=== PATIENT | female | born 1945 | race Caucasian/White ===

== ENCOUNTER → 2023-11-04 08:57 | Outpatient (REF) | payer MEDICARE, SELFPAY ==
[2023-11-04 09:56] LABS: % Basophils 0.7 % (0-2); % Eosinophils 2.5 % (0-6); % Lymphocytes 31.8 % (20.5-51.1); % Monocytes 8.7 % (1.7-9.3); % Neutrophils 56.3 % (42.2-75.2); Absolute Eosinophils 0.1 10^3/uL (0-0.7); Absolute Lymphocytes 1.4 10^3/uL (1.2-3.4); Absolute Monocytes 0.4 10^3/uL (0.1-0.6); Absolute Neutrophils 2.5 10^3/uL (1.4-6.5); Hematocrit 43.3 % (37.0-47.0); Hemoglobin 14.9 g/dL (12.0-16.0); Mean Corp Hgb Conc. 34.4 g/dL (33.0-37.0); Mean Corpuscular Hgb 32.4 pg (27.0-31.0); Mean Corpuscular Volume 94.1 fL (81.0-99.0); Mean Platelet Volume 9.9 fL (7.4-10.4); Nucleated Red Blood Cells % 0 %; Platelet Count 222 10^3/uL (130-400); Red Cell Dist. Width 12.1 % (11.5-14.5); White Blood Cell Count 4.5 10^3/uL (4.8-10.8)
[2023-11-04 10:52] LABS: ALT (SGPT) 15 U/L (0-35); AST (SGOT) 29 U/L (14-36); Albumin 4.5 g/dl (3.5-5.0); Alkaline Phosphatase 55 U/L (38-126); Blood Urea Nitrogen 18 mg/dl (7-17); Calcium 10.2 mg/dl (8.4-10.2); Carbon Dioxide 27 mmol/L (22-30); Chloride 101 mmol/L (98-107); Glucose 95 mg/dl (70-99); Potassium 4.6 mmol/L (3.5-5.1); Sodium 137 mmol/L (135-145); Total Bilirubin 0.7 mg/dl (0.2-1.3); Total Protein 6.5 g/dl (6.3-8.2); eGFR > 60.00
== END ==
LOC: SDSPAT 08:57
PROVIDERS: ATTENDING PHYSICIAN Internal Medicine Cardiovascular Disease; FAMILY PHYSICIAN Nurse Practitioner Adult Health
DX: Z01.818 Encounter for other preprocedural examination (principal); I48.0 Paroxysmal atrial fibrillation
CPT/HCPCS: 36415; 80053; 85025; 86850; 86900; 86901

== ENCOUNTER → 2023-11-04 09:24 | Outpatient (REF) | payer MEDICARE, SELFPAY | LOC: RAD 09:24 | PROVIDERS: ATTENDING PHYSICIAN Nurse Practitioner Adult Health | DX: M85.80 Other specified disorders of bone density and structure, unspecified site (principal); Z12.13 Encounter for screening for malignant neoplasm of small intestine; M81.0 Age-related osteoporosis without current pathological fracture | CPT/HCPCS: 77080 ==

== ENCOUNTER 2023-11-12 05:59 | Day surgery (SDC) | payer MEDICARE, SELFPAY ==
[2023-11-12] VITALS (15 sets, daily range): BP systolic 94–143; BP diastolic 45–62; BMI 29.1
[2023-11-12] MEDS: NSS 500 IV (06:41)
[2023-11-12 08:42] LABS: Blood Urea Nitrogen 15 mg/dl (7-17); Calcium 9.3 mg/dl (8.4-10.2); Carbon Dioxide 24 mmol/L (22-30); Chloride 108 mmol/L (98-107); Estimated Creatinine Clearance 72 ml/min; Glucose 91 mg/dl (70-99); Magnesium 2.1 mg/dl (1.6-2.3); Sodium 140 mmol/L (135-145); eGFR > 60.00
[2023-11-12 09:53] LABS: ACT-LR - POC 393 Seconds (116-155)
[2023-11-12 10:00] LABS: ACT-LR - POC > 397 Seconds (116-155)
[2023-11-12 10:00] LABS: ACT-LR - POC > 397 Seconds (116-155)
[2023-11-12] MEDS: TYLENOL 650 MG PO (11:13)
[2023-11-12] MEDS: ANESTHETIC LOZENGE 1 LOZENGE PO (12:48)
--- NOTE | 2023-11-12 12:52 | ITS.CL.ABL ---
[facility] - Ablation
Ablation
Procedure Report:
AFIB ablation:
Ms. Velazco is a very pleasant 77 yr old woman with symptomatic paroxysmal AF on Eliquis presented today to the EP lab for atrial fibrillation / SVT ablation.
Date of the Procedure:
11/12/2023
Indications:
Paroxysmal atrial fibrillation
Pre-Operative Diagnosis:
Paroxysmal atrial fibrillation
Post-Operative Diagnosis:
Paroxysmal atrial fibrillation
Procedure Performed:
Atrial fibrillation ablation with Pulsed-Field approach for pulmonary vein isolation
Performing Physician:
Trino Robles MD
Assistants:
EP staff
Anesthesia:
See anesthesia records
Detailed Description of the Procedure:
Written informed consent was obtained from the patient after a full explanation of the risks and benefits of the procedure including the risks of sedation and anesthesia.
The patient was brought to the electrophysiology laboratory in stable condition in fasting state. Continuous electrocardiographic and hemodynamic monitoring was initiated.
The initial rhythm was normal sinus rhythm.
The procedure site was meticulously prepared with surgical scrub and allowed to dry with no pooling. Sterile draping was applied to cover the procedure site. The image intensifier was draped with sterile bag and positioned over the patient. After
infusion of local anesthetic, vascular access was obtained under ultrasound guidance and sheaths were placed over guide wire as detailed below.
Sheath and Catheter Placement:
The following catheters / sheaths were placed. 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
Sheaths:
��������� 15Fr steerable sheath (FlexCath Cross�, Onzo) in right femoral vein in right femoral vein
��������� 9Fr in right femoral vein
��������� 7Fr in right femoral vein
Catheters:
��������� ISIAH HD Grid mapping catheter � at locations of RA, LA
��������� PulseSelect� PFA catheter
��������� ICE catheter -AcuNav - at locations of RA, SVC, and RV.
��������� Decapolar Bard catheter in RA and CS
Intracardiac ECHO:
An 8-Romanian AcuNav intracardiac ECHO (ICE) probe was advanced through the 9-Romanian sheath in the right femoral vein into the right atrium under fluoroscopic and ICE ultrasound image guidance and a baseline ECHO study was performed. The left atrial
size was mildly dilated. There was moderate tricuspid regurgitation. The aortic valve was grossly normal. There was normal left ventricular systolic functions. There is trace pericardial effusion. All the four veins were identified and has flow
identified.
The cardiac chambers were significantly rotated.
During the procedure, ICE was used for monitoring of complications, guidance of trans-septal puncture, monitor the catheter position and tracking ablation lesions. No change in the pericardial space noted throughout the procedure.
Trans-septal Puncture:
Heparin was initiated and infused to maintain appropriate ACT. A J-tipped guidewire was advanced through the 8-Romanian sheath in the right femoral vein into the superior vena cava under fluoroscopic and ICE guidance. The 8-Romanian sheath was exchanged
for a FlexCath Cross sheath which was advanced into the superior vena cava. An [employer] transseptal access system was utilized to perform the trans-septal puncture. The apparatus was withdrawn until it was in contact with the fossa ovalis. The
position was adjusted based on fluoroscopy and ultrasound images from ICE. Under fluoroscopic, hemodynamic and ICE ultrasound guidance, left atrium was cannulated by advancing the needle. Once atrial septum was cannulated, the needle was pulled back
and a guide wire was advanced through the needle into the left atrium. The guide wire was advanced into the left superior pulmonary vein. Both the sheath and the dilator was advanced into the left atrium. The dilator with the needle was withdrawn.
Blood was aspirated from the FlexCath cross sheath and arterial blood confirmed. The sheath was flushed. Saline injection noted into the left atrium on ICE. The mapping catheter was advanced in the Agilis sheath into the left pulmonary vein. Left
atrial pressure was measured.
3D Electroanatomic Mapping:
Using the HD Grid catheter advanced through sheath into the left atrium, an electroanatomic map (EAM) of the left atrium was created using [employer] ISIAH mapping system. The map was used for localization of catheter position and tacking of ablation
lesions. The EAM of the left atrium showed 4 pulmonary veins with two left sided and two right sided veins electrically connected to the body the LA. The EAM showed no significant scar in the left atrium.
Patient had severe ectopy and frequent short burst of AT noted, coming from the LA.
The LA was normal in size.
Following the EAM, preparation were made for ablation.
�
Ablation:
Ablation # 1: Pulmonary vein Isolation:
Using Comply7� pulsed field ablation system, pulmonary vein isolation was acieved. First the ablation catheter was placed in the LIPV and ostial ablation lesions were performed in a counter clock chris approach all around the PV ostium
circumferentially. Then the catheter was placed on the antral location and multiple ablation lesions were placed circumferentially on the antrum of the vein.
In the similar fashion, the LSPV were isolated.
Then the catheter was moved to right sided veins. The ostial and antral ablations were placed as noted above.
After 30 minutes, the left sided (LSPV) was noted to have signals anteriorly and was able to capture the atrial tissue by pacing. This prompted more ablation in the LSPV.
�
Post ablation Electroanatomic mapping:
Once the sinus rhythm achieved, the LA was mapped with HD grid in detail.
The veins were isolated and normal electrograms noted in the posterior wall. Excellent WACA ablation noted with excellent demarcation of LA myocardium and isolated antral tissue. There was dissociated signals were noted in the veins as well.
EPS and Confirmation of the PVI and bidirectional block:
Following achievement of entrance block at the pulmonary veins, pacing from the HD catheter in each of the four veins at 10 milliamps for 2 milliseconds showed entrance and exit block. All PVI were rechecked at the end of the case and remained
isolated with dissociated and local capture with pacing. Entrance and exit block were demonstrated in all veins.
Full EPS was done and burst pacing and aggressive pacing maneuvers were done without any arrhythmia noted. The AT was not present post ablation.
Procedure End
ICE study was done again that showed no epicardial accumulation. No complications noted.
Following the completion of the EP study, catheters were removed. Protamine 30 mg was given at the end of the procedure and ACT was checked repeatedly. The sheaths were removed and hemostasis achieved with VASCADE and manual compression after
acceptable ACT is achieved.
Left atrial Pressure:
Mean LA pressure was 5mmHg
Mean RA pressure was 2 mmHg
Estimated Blood loss:
<10 cc
Specimens Removed:
None.
Implants / Devices:
None
Urine output:
None
Packs / Drains/ Tubes:
None
Instrument / Sponge Count Correct:
Yes
Complications of the Procedure:
None
Condition of Patient at Time of Transfer:
Hemodynamically stable with no neurological or vascular compromise.
Summary:
Successful atrial fibrillation ablation with Pulsed Field approach for pulmonary vein isolation
Figures from the Procedure:
Figure 1: The electroanatomic mapping (EAM) of the left atrium with bipolar voltage (purple indicates normal electrical activity with orona as no myocardial muscle electric activity indicating a line of block or scar.
[2023-11-12] MEDS: NSS IV (13:38)
[2023-11-12] MEDS: NSS 250 IV (13:39)
--- NOTE | 2023-11-12 14:19 | W.PN.UPDATE ---
Update Note
Progress Note Update
77 yo WF s/p PVI (same day). She had some mild low bp and dizziness, improved with 500cc NS bolus, no cp, sob, voiding, groin c/d/i no HT, soft, EKG SB. She will continue OAC Eliquis at home tonight. Activity restrictions reviewed. 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
in 2 weeks. She is for d/c home after 2pm if groin stable
Ms. Velazco is a very pleasant 77 yr old woman with symptomatic paroxysmal AF on Eliquis presented today to the EP lab for atrial fibrillation / SVT ablation.
11/12/2023
Procedure Performed:
Atrial fibrillation ablation with Pulsed-Field approach for pulmonary vein isolation
== END 2023-11-12 14:50 | disposition home or self-care (01) ==
LOC: CATH 05:59
PROVIDERS: ATTENDING PHYSICIAN Internal Medicine Cardiovascular Disease
DX: I48.0 Paroxysmal atrial fibrillation (principal); R53.83 Other fatigue; I10 Essential (primary) hypertension; E78.5 Hyperlipidemia, unspecified; E03.9 Hypothyroidism, unspecified; Z80.8 Family history of malignant neoplasm of other organs or systems; Z79.01 Long term (current) use of anticoagulants
CPT/HCPCS: C1732; C1894; C1730; C1733; C1769; C1892; C1759; 76937; 80048; 83735; 85347; 86900; 86901; 93005; 93656; C1760

== ENCOUNTER → 2024-03-04 12:57 | Outpatient (REF) | payer MEDICARE, SELFPAY | LOC: WDC 12:57 | PROVIDERS: ATTENDING PHYSICIAN Nurse Practitioner Adult Health | DX: Z12.31 Encounter for screening mammogram for malignant neoplasm of breast (principal) | CPT/HCPCS: 77063; 77067 ==

== ENCOUNTER → 2024-05-14 08:41 | Outpatient (REF) | payer MEDICARE, SELFPAY | LOC: RAD 08:41 | PROVIDERS: ATTENDING PHYSICIAN Nurse Practitioner Adult Health | DX: E78.00 Pure hypercholesterolemia, unspecified (principal); R42 Dizziness and giddiness; R51.9 Headache, unspecified; R55 Syncope and collapse | CPT/HCPCS: 93880 ==

== ENCOUNTER → 2024-05-24 12:13 | Outpatient (REF) | payer MEDICARE, SELFPAY | LOC: MRI 3T 12:13 | PROVIDERS: ATTENDING PHYSICIAN Nurse Practitioner Adult Health | DX: E78.00 Pure hypercholesterolemia, unspecified (principal); R42 Dizziness and giddiness; R51.9 Headache, unspecified | CPT/HCPCS: 70551 ==